=== PATIENT | female | born 1985 | race Two or more races ===

== ENCOUNTER 2019-04-16 00:55 | Emergency (ER) | payer OTHER ==
[~2019-04-16] VITALS: Ht 165.1 cm; Wt 59.0 kg
--- NOTE | 2019-04-16 01:00 | NUR ---
PT PRESENTED TO THE ER WITH A C/O RT LOWER ABD INTRACTABLE PAIN. PT IS UNABLE TO LIE FLAT ON THE GURNEY AND PT IS BENT OVER/KNEELING ON THE BED CRYING. PT WAS PLACED ON THE MONITOR AND CONTINUOUS PULSE OX.
[2019-04-16] MEDS ORDERED: MORPHINE SULFATE INJ 4 MG/ML DISP.SYRIN ONE (01:18)
[2019-04-16] MEDS ORDERED: ONDANSETRON HCL/PF 4 MG/2 ML VIAL ONE (01:18)
[2019-04-16] MEDS ORDERED: ONDANSETRON HCL/PF 4 MG/2 ML VIAL IVP ONE (01:30)
[2019-04-16] MEDS ORDERED: IV NS 0.9% 1,000 ML BAG IV ONE (01:30)
[2019-04-16] MEDS ORDERED: MORPHINE SULFATE INJ 2 MG/ML DISP.SYRIN IV ONE (01:30)
[2019-04-16 01:31] LABS: BASOPHILS # (AUTO) 0.1 /CMM (0.0-0.2); BASOPHILS % (AUTO) 1.2 % (0.0-2.0); EOSINOPHILS % (AUTO) 1.7 % (0.0-6.0); HEMATOCRIT 42 % (33-45); LYMPHOCYTES # (AUTO) 2.5 /CMM (0.8-4.8); MEAN CORPUSCULAR HGB CONC 34 g/dl (31.0-36.0); MEAN CORPUSCULAR VOLUME 95 fL (82-100); MONOCYTES # (AUTO) 0.6 /CMM (0.1-1.30); MONOCYTES % (AUTO) 7.8 % (2.0-12.0); NEUTROPHILS # (AUTO) 4.6 /CMM (1.8-8.9); NEUTROPHILS % (AUTO) 57.3 % (43.0-81.0); PLATELET COUNT (AUTO) 156 /CMM (150-450); RED BLOOD CELL COUNT(AUTO) 4.35 MIL/uL (4.0-5.2)
[2019-04-16 01:39] LABS: CALCIUM, SERUM 8.8 mg/dL (8.5-10.1); CREATININE 0.7 mg/dL (0.6-1.3); POTASSIUM 3.8 mmol/L (3.5-5.1)
--- NOTE | 2019-04-16 01:45 | NUR ---
PT AMBULATED TO THE BATHROOM WITH MINIMAL ASSISTANCE. PT IS C/O ABD PAIN 08/12. PT WILL TRY AND GIVE A URINE SAMPLE.
--- NOTE | 2019-04-16 01:53 | NUR ---
URINE SAMPLE OBTAINED AND SENT TO LAB. PT RETURNED TO ER BED #7 AND WAS RECONNECTED TO THE MONITOR AND CONTINUOUS PULSE OX. PT STATED THAT IS WAS PAINFUL TO GIVE THE URINE SAMPLE. SHE FELT A LOT OF PRESSURE.
--- NOTE | 2019-04-16 01:56 | NUR ---
US TECH ARRIVED AND IS AT THE BEDSIDE.
[2019-04-16] MEDS ORDERED: HYDROMORPHONE INJ 0.5 MG/0.5 ML SYRINGE IV ONE (02:00)
--- NOTE | 2019-04-16 02:00 | NUR ---
PT IS C/O RT LOWER QUAD ABD PAIN THAT IS INCREASING WITH US PROCEDURE. DR GLEASON WAS NOTIFIED. NEW ORDERS GIVEN.
[2019-04-16] MEDS ORDERED: HYDROMORPHONE 1 MG/1 ML DISP.SYRIN ONE (02:01)
[2019-04-16 02:02] LABS: APPEARANCE,URINE CLEAR (CLEAR); BILIRUBIN,URINE NEGATIVE (NEGATIVE); BLOOD, URINE NEGATIVE Ery/uL (NEGATIVE); COLOR,URINE YELLOW (YELLOW); KETONES,URINE NEGATIVE (NEGATIVE); LEUKOCYTE ESTERASE ,URINE NEGATIVE (NEGATIVE); NITRITE, URINE NEGATIVE (NEGATIVE); PROTEIN,URINE NEGATIVE (NEGATIVE); UGLUCOSE NEGATIVE (NEGATIVE); UROBILINOGEN,URINE 0.2 EU/dL (0.2)
--- NOTE | 2019-04-16 03:01 | NUR ---
IV removed. Catheter intact and site benign. Pressure and 4x4 applied to site. No bleeding noted. Patient discharged to home in stable condition. Written and verbal after care instructions given. Patient verbalizes understanding of instruction AND RX. PT AMBULATED OUT WITH A STEADY GAIT. VSS. NAD NOTED. PT REC'D A COPY OF THE US FINDINGS AND ALL LABS.
[2019-04-16 03:02] VITALS: BP 102/83
== END 2019-04-16 03:03 | disposition home or self-care (01) ==
LOC: ER 00:55
DX: N83.201 Unspecified ovarian cyst, right side (principal); Z88.0 Allergy status to penicillin
CPT/HCPCS: 36415; 76856; 80048; 81001; 84702; 85025; 96374; 96375; 99284; J1170; J2270; J2405; J7030; 81000-TC